=== PATIENT | male | born 1965 | race Caucasian/White ===

== ENCOUNTER 2017-08-22 10:27 | Outpatient (CLI) | payer BC ==
--- NOTE | 2017-08-22 15:27 | ULT ---
SCROTAL ULTRASOUND WITH COLOR AND SPECTRAL DOPPLER IMAGING: HISTORY: Left-sided scrotal pain. FINDINGS: The right testis measures 4.2 x 3.0 x 4.2 cm. The left testis measures 3.4 x 2.2 x 2.9 cm. Small, slightly loculated hydroceles bilaterally. No intratesticular mass. No evidence for testicular tor kyara. No specific mass could be demonstrated in the region of palpable concern by the patient, unde rneath the scrotum. IMPRESSION: 1. No intratesticular mass or testicular torsion. 2. Small bilateral slightly loculated hydroceles. 3. No specific focal mass seen in the region of palpable concern. If the patient has peristent or worsening symptoms, consider a short-term follow-up study. POS: FRANCK
== END 2017-08-22 10:28 | disposition home or self-care (01) ==
LOC: ULT 10:27
PROVIDERS: ATTEND Family Medicine
DX: N50.82 Scrotal pain (principal); N43.3 Hydrocele, unspecified
CPT/HCPCS: 76870; 93976

== ENCOUNTER 2020-09-30 09:46 | Outpatient (CLI) | payer OTHER ==
--- NOTE | 2020-09-30 12:06 | MRI ---
MRI RIGHT SHOULDER PERFORMED WITHOUT CONTRAST ENHANCEMENT: Date: 09/30/2020 HISTORY: Right shoulder pain. 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 There is a full thickness near complete supraspinatus tendon tear. The tendon is retracted by approxi mately 3.3 cm. Some more prominent retraction of some of the undersurface fibers by closer to 4.0 cm. There appears to be some subtle delamination to the infraspinatus tendon with some minimal fluid den sity seen at the musculotendinous junction. There is a partial undersurface tear of the subscapularis tendon. The biceps tendon does lie in a nor mal position within the bicipital groove. Interarticular portion of the biceps tendon is difficult to visualize due to motion artifact. There is at least tendinosis present and possibly associated split tear. There is a degenerative type tear of the superior labrum at the biceps anchor. Inferior glenohumeral ligamentous and labral complex appears intact. There is some mild subscapularis muscle atrophy of the superior fibers. IMPRESSION: 1. Full thickness supraspinatus tendon tear as described above. Some minimal delamination involving the infraspinatus. 2. Partial undersurface tear of the subscapularis tendon superior fibers, and at least tendinosis of the interarticular portion of the biceps tendon, probably associated developing split tear, and dege nerative changes of the superior labrum at the level of the biceps anchor. POS: MARYAM
--- NOTE | 2020-09-30 13:17 | MRI ---
MRI OF LEFT SHOULDER PERFORMED WITHOUT CONTRAST ENHANCEMENT: Date: 09/30/2020 HISTORY: Shoulder pain, impingement. FINDINGS: There is marked arthrosis of the AC joint. There is a partial width full thickness supraspinatus tend on tear. There is differential retraction of the articular and bursal sided fibers. Anteriorly, the b ursal sided fibers are retracted by approximately 2.1 cm, with articular sided fibers retracted by ap proximately 2.8 cm. There are still some very thin outer bursal fibers that are intact posteriorly. T he infraspinatus tendon appears intact. There are moderate tendinopathy changes of the subscapularis tendon. Biceps tendon does appear to be in normal position within the bicipital groove. The bicipital labral complex appears intact. The inferior glenohumeral ligamentous and labral complex also appears intact. There is mild atrophy of some of the superior fibers of the subscapularis muscle. No significant atro phy of the supra or infraspinatus muscles. IMPRESSION: 1. Full thickness almost complete supraspinatus tendon tear. Some of the outer bursal fibers are sti ll intact involving the posterior portion of the tendon but significant retraction of the tendon of b oth articular and bursal sided fibers as described above. 2. Moderate arthrosis of the AC joint. 3. Moderate tendinopathy changes of the superior fibers of the subscapularis tendon. POS: MARYAM
== END 2020-09-30 09:47 | disposition home or self-care (01) ==
LOC: BICMRI 09:46
PROVIDERS: ATTEND Orthopaedic Surgery
DX: M75.41 Impingement syndrome of right shoulder (principal); M75.42 Impingement syndrome of left shoulder; M75.121 Complete rotator cuff tear or rupture of right shoulder, not specified as traumatic; M19.012 Primary osteoarthritis, left shoulder; M75.122 Complete rotator cuff tear or rupture of left shoulder, not specified as traumatic; M77.8 Other enthesopathies, not elsewhere classified; M19.011 Primary osteoarthritis, right shoulder